=== PATIENT | male | born 1945 | race Caucasian/White ===

== ENCOUNTER 2021-07-28 15:36 | Emergency (ER) | payer OTHER, MEDICAID, SELFPAY ==
[~2021-07-28] VITALS: Ht 182.9 cm; Wt 72.6 kg
[2021-07-28 16:00] VITALS: BP_SYST 107
--- NOTE | 2021-07-28 16:50 | NUR ---
Patient to ER bed 7 to gown for evaluation. Side rails up.
--- NOTE | 2021-07-28 16:55 | NUR ---
Pt here for medical clearance to go to [facility], Room 58A. No complaints at this time, v/s stable, no acute distress noted.
--- NOTE | 2021-07-28 17:00 | NUR ---
Lab at bedside for blood draw.
[2021-07-28 17:08] LABS: BASOPHILS % (AUTO) 0.4 % (0.0-2.0); EOSINOPHILS % (AUTO) 0.2 % (0.0-4.0); HEMATOCRIT 37.7 % (36-54); HEMOGLOBIN 12.6 g/dL (14.0-18.0); LYMPHOCYTES % (AUTO) 10.6 % (20.5-51.5); MEAN CORPUSCULAR HEMOGLOBIN 29 pg (27-31); MEAN CORPUSCULAR HGB CONC 33 % (32-36); MEAN CORPUSCULAR VOLUME 87 fL (79.0-98.0); MONOCYTES # (AUTO) 0.5 K/uL (0.0-1.0); MONOCYTES % (AUTO) 5.7 % (1.7-9.3); NEUTROPHILS # (AUTO) 7.5 K/uL (1.8-7.7); NEUTROPHILS % (AUTO) 83.1 % (40.0-70.0); PLATELET COUNT (AUTO) 262 K/uL (130-430); RED BLOOD CELL COUNT(AUTO) 4.33 MIL/uL (4.2-6.2); RED CELL DISTRIBUTION WIDTH 14.4 % (9.0-15.0)
[2021-07-28 17:39] LABS: ANION GAP 3 (5-15); CALCIUM 8.9 mg/dL (8.4-11.0); CHLORIDE 106 mmol/L (98-107); GLUCOSE 93 mg/dL (70-99); POTASSIUM 4.3 mmol/L (3.5-5.1); SODIUM SERUM 139 mmol/L (136-145); UREA NITROGEN, BLOOD 34 mg/dL (8-21)
[2021-07-28 17:49] LABS: ALANINE AMINOTRANSFERASE 19 U/L (12-78); ASPARTATE AMINOTRANSFERASE 20 U/L (10-37); TOTAL BILIRUBIN 0.3 mg/dL (0.0-1.0)
[2021-07-28 17:50] LABS: ACETAMINOPHEN < 1 ug/mL (1-30); ALBUMIN 3.5 g/dL (3.4-4.8); ALCOHOL, BLOOD < 3 mg/dL (<10)
--- NOTE | 2021-07-28 17:50 | NUR ---
ER Dr. Laboy at bedside examining patient.
[2021-07-28 18:21] LABS: CHOLESTEROL 174 mg/dL (<200); HDL CHOLESTEROL 87 mg/dL (>45); LDL CHOLESTEROL 72 mg/dL (<100); TRIGLYCERIDES 44 mg/dL (30-150)
--- NOTE | 2021-07-28 19:10 | NUR ---
Care of patient endorsed to [facility]. Pt currently resting in bed, no acute distress noted.
--- NOTE | 2021-07-28 19:26 | NUR ---
Assumed total care of patient. Patient awake, alert, walking around room with steady gait. Patient awaiting for transportation to [facility]. Patient has been medically cleared by MD. Patient denies any medical complaints. Patient breathing even and unlabored, symmetrical chest and rise and fall, no signs of acute distress noted. Will continue to monitor.
[2021-07-28 19:31] LABS: BILIRUBIN,URINE NEGATIVE (NEGATIVE); BLOOD, URINE NEGATIVE (NEGATIVE); CLARITY/URINE CLEAR (CLEAR); COLOR,URINE YELLOW (YELLOW); GLUCOSE,URINE NEGATIVE (NEGATIVE); KETONES,URINE NEGATIVE (NEGATIVE); LEUKOCYTE ESTERASE ,URINE NEGATIVE (NEGATIVE); NITRITE, URINE NEGATIVE (NEGATIVE); PROTEIN URINE NEGATIVE (NEGATIVE)
[2021-07-28 19:32] LABS: UROBILINOGEN,URINE 0.2 (0.2-1.0)
[2021-07-28 19:41] LABS: BARBITURATE, URINE NEGATIVE (NEG <=200); BENZODIAZEPINE, URINE POSITIVE (NEG <=150); CANNABINOID, URINE NEGATIVE (NEG <=50); COCAINE, URINE NEGATIVE (NEG <=150); METHAMPHETAMINES SCREEN,URINE NEGATIVE (NEG <=500); OPIATE, URINE NEGATIVE (NEG <=100); PHENCYCLIDINE SCREEN,URINE NEGATIVE (NEG <=25); UR TRICYCLIC ANTIDEPRESSANTS NEGATIVE (NEG <=300); URINE AMPHETAMINE NEGATIVE (NEG <=500); URINE METHADONE NEGATIVE (NEG <=200); URINE OXYCODONE SCREEN NEGATIVE (NEG <=100); URINE PROPOXYPHENE SCREEN NEGATIVE (NEG <=300)
--- NOTE | 2021-07-28 20:12 | NUR ---
Patient given some water and assisted back to room
--- NOTE | 2021-07-28 20:35 | NUR ---
Patient to be transferred to [facility]. Is being transferred due to higher level of care. Receiving facility has accepting physician and available space. ER physician has signed transfer form. Patient or responsible green party has agreed to transfer and signed form. Patient belongings inventoried and will be sent with patient. Copy of nursing notes, lab reports, EKG, Physicians Orders and X-rays to be sent with patient. Report called to [facility] at receiving facility. Receiving physician is Dr. Kennedy. [facility] ambulance service has been called for transfer. ETA is [id number].
--- NOTE | 2021-07-28 21:16 | NUR ---
Patient sitting calmly in bed drinking water. Patient alert awake, calm and cooperative. No signs of apparent distress
--- NOTE | 2021-07-28 23:20 | NUR ---
Patient walking with the hallway, patient instructed to go back to bed. Patient able to follows commands and is cooperative. No signs of apparent distress noted. Patient ambulates with steady gait
--- NOTE | 2021-07-29 00:20 | NUR ---
Updated ETA is [id number]
--- NOTE | 2021-07-29 01:14 | NUR ---
Patient given turkey sandwich to eat
--- NOTE | 2021-07-29 02:01 | NUR ---
Report given to EMS crew prior to transport to [facility]
[2021-07-29 02:13] VITALS: BP_SYST 113
--- NOTE | 2021-07-29 02:14 | NUR ---
Patient given written and verbal discharge instructions and verbalizes understanding. ER MD discussed with patient the results and treatment provided. Patient in stable condition. ID arm band removed. no IV no Rx given. Patient educated on pain management and to follow up with PMD. Pain Scale 0/10. Opportunity for questions provided and answered. Medication side effect fact sheet provided.
== END 2021-07-29 02:13 ==
LOC: SED 15:36
DX: R45.6 Violent behavior (principal); Z20.822 Contact with and (suspected) exposure to COVID-19; Z79.899 Other long term (current) drug therapy
CPT/HCPCS: 36415; 80053; 80061; 80307; 81003; 83036; 85025; 87081; 87426; 99285; G0480; G0481; G0482